=== PATIENT | female | born 1940 | race Caucasian/White ===

== ENCOUNTER → 2017-03-06 | Day surgery (SDC) | payer OTHER ==
--- NOTE | 2017-03-07 12:09 | PATH ---
Surgical Pathology Report Patient Name: MINDA MOSES [facility]. Rec. #: [id number] /Age/Gender: 1940 (Age: 76) / F Account: [id number] Location: [facility] Taken: 03/06/2017 Received: 03/06/2017 Reported: 03/07/2017 Physicians: Travon Rodarte M.D. Specimen(s) Received A: LEFT BREAST CORE BIOPSY SITE 1, 3 O'CLOCK, 2 CM FN B: LEFT BREAST CORE BIOPSY, 2 O'CLOCK, 4 CM FN Clinical History None given Final Diagnosis A. LEFT BREAST, 3:00 2 CM FROM NIPPLE, ULTRASOUND GUIDED NEEDLE CORE BIOPSY: BENIGN BREAST TISSUE WITH EXTENSIVE STROMAL FIBROSIS. B. LEFT BREAST, 2:00 4 CM FROM NIPPLE, ULTRASOUND GUIDED NEEDLE BIOPSY: BENIGN BREAST TISSUE WITH EXTENSIVE STROMAL FIBROSIS. Comment: Recommend correlation with clinical and radiologic findings and follow up as clinically indicated. Electronically Signed Andrew Hernandez M.D. Gross Description A. Received in formalin labeled "left breast biopsy 3:00, 2cmfn," is a 1.1 x 0.7 x 0.2 cm aggregate of multiple kruse-yellow, irregular to cylindrical portions of fibroadipose tissue. The formalin and filtered and the specimen is entirely submitted in one cassette. B. Received in formalin labeled "left breast 2:00, 4cmfn," are 6 kruse-yellow, cylindrical portions of fibroadipose tissue ranging from 1.4-2.0 cm in length and averaging 0.2 cm in diameter. The specimens are submitted in toto in one cassette. Time to formalin fixation: 2 minutes Total formalin fixation time: Approximately 8 hours. /03/06/2017 saudi03/06/2017
== END | disposition home or self-care (01) ==
LOC: FRADUS-SUR 08:44
PROVIDERS: ATTEND Surgery Surgical Oncology
PROC: 0HBU3ZX Excision of Left Breast, Percutaneous Approach, Diagnostic (ICD-10-PCS; principal; 2017-03-06)
DX: N60.32 Fibrosclerosis of left breast (principal); N63.21 Unspecified lump in the left breast, upper outer quadrant
CPT/HCPCS: 19083; 19084; 88305-TC; G0206-TC